=== PATIENT | male | born 1980 | race Caucasian/White ===

== ENCOUNTER 2016-11-13 08:58 | Emergency (ER) | payer OTHER ==
[2016-11-13 09:37] VITALS: BP 151/92; PULSE 87; RESP 18; TEMP 98.4; O2SAT 95
--- NOTE | 2016-11-13 09:58 | UCPHY ---
H & P Patient Type: New HPI/ROS: CHIEF COMPLAINT: Sinus pressure, congestion, sore throat. HISTORY OF PRESENT ILLNESS: The patient is a 35-year-old male presenting with one week of nasal congestion, sinus pressure, and sore throat that have been worsening over the past 3 days. He admits associated mild dry cough. No fever. REVIEW OF SYSTEMS: Constitutional: No fever, no chills. Eyes: No diplopia. ENT: As above. Cardiovascular: No chest pain, no palpitations. Respiratory: As above. Gastrointestinal: No nausea vomiting or diarrhea. No abdominal pain. Genitourinary: No hematuria or frequency. Musculoskeletal: No back pain. Skin: No rashes. Neurological: No headache. 10 point ROS otherwise negative Past Medical/Surgical History: Denies. Social History: Nonsmoker. Smoking Status: Never smoked Physical Exam: General Appearance: Alert, no distress. Afebrile. Normal phonation. No respiratory distress. Eyes: Pupils equal and round no pallor or injection. No icterus ENT, Mouth: Mucous membranes moist. Pharynx not erythematous and without exudate. TM Clear. Neck: No adenopathy. Supple. No JVD. Trachea in midline. Respiratory: There are no retractions, lungs are clear to auscultation. Cardiovascular: Regular rate and rhythm. Abdomen: Soft and nontender, no masses, bowel sounds normal. Femoral pulses equal. Neurological: Ox3. No motor weakness. Sensation intact. Gait nl. Skin: Warm and dry, no rashes. Musculoskeletal: No joint swelling. Extremities: No edema. Homans sign negative. No cords. Psychiatric: Patient is oriented X 3, there is no agitation Constitutional: Initial Vital Signs Temperature (C) 36.9 C 11/13/16 09:31 Heart Rate 87 11/13/16 09:31 Respiratory Rate 18 11/13/16 09:31 Blood Pressure 151/92 H 11/13/16 09:31 O2 Sat (%) 95 11/13/16 09:31 O2 Delivery Mode Room Air Allergies/Adverse Reactions: No Known Allergies Allergy (Unverified 11/13/16 09:31) Home Medications: Medication Instructions Recorded NK [No Known Home Meds] 11/13/16 Medical Decision Making ED Course/Re-evaluation: Strep swab was obtained and returned negative from the lab. - Data Points Laboratory Results: 11/13/16 11/13/16 Unknown 09:35 Group A Strep Screen NEGATIVE (NEGATIVE) Group A Strep DNA Pending Departure - Departure Disposition: Home, Routine, Self-Care Clinical Impression: Viral upper respiratory illness Pharyngitis Qualifiers: Pharyngitis/tonsillitis etiology: unspecified etiology Qualified Code(s): J02.9 - Acute pharyngitis, unspecified Condition: Good Instructions: Pharyngitis (ED) Additional Instructions: Drink plenty of fluids and be sure to get rest. You will be contacted tomorrow if your long strep test returns positive. You will not be contacted if it is negative. Follow up with your primary care provider in the next 3-4 days if symptoms are not improving. Return for any serious worsening of condition. Referrals: [facility] [Other] - As per Instructions - PQRS PQRS Measurement: Does not apply. Report Scribed for: Osbaldo Garcia Report Scribed by: Brody Serrato Date of Report: 11/13/16 Time of Report: 09:58 Physician Review and Approval Statement: 11/13/16 09:58 Portions of this note were transcribed by a medical staff assistant. I personally performed a history, physical exam, medical decision making, and confirmed accuracy of information the transcribed note.
== END 2016-11-13 10:50 | disposition home or self-care (01) ==
LOC: CED 08:58
DX: J02.9 Acute pharyngitis, unspecified (principal); R09.81 Nasal congestion
CPT/HCPCS: 87880-PO; G0463-PO